=== PATIENT | female | born 1990 | race African-American/Black ===

== ENCOUNTER 2019-06-16 09:37 | Emergency (ER) | payer BC ==
--- NOTE | 2019-06-16 10:06 | EDM.PDOC ---
ED HPI GENERAL MEDICAL PROBLEM - General Chief Complaint: Upper Extremity Injury/Pain Stated Complaint: LEFT ARM INJURY Time Seen by Provider: 06/16/19 09:49 Source of Information: Reports: Patient History Limitations: Reports: No Limitations - History of Present Illness INITIAL COMMENTS - FREE TEXT/NARRATIVE: Patient is a 29-year-old female who presents with complaints of pain to her left upper arm after falling backward and catching herself with her bilateral arms while ice-skating approximate 45 minutes prior to arrival. She states she has to support her arm with her right hand or it is extremely painful. She denies a history of previous injuries to that extremity. 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: - Past Surgical History GI Surgical History: Reports: Cholecystectomy Social & Family History - Family History Family Medical History: Noncontributory - Tobacco Use Smoking Status *Q: Current Every Day Smoker Years of Tobacco use: 10 Packs/Tins Daily: 0.5 - Caffeine Use Caffeine Use: Reports: Coffee, Energy Drinks, Soda - Living Situation & Occupation Living situation: Reports: Occupation: Employed Review of Systems - Review of Systems Review Of Systems: See Below Constitutional: Reports: No Symptoms Eyes: Reports: No Symptoms Ears: Reports: No Symptoms Nose: Reports: No Symptoms Mouth/Throat: Reports: No Symptoms Respiratory: Reports: No Symptoms Cardiovascular: Reports: No Symptoms GI/Abdominal: Reports: No Symptoms Genitourinary: Reports: No Symptoms Musculoskeletal: Reports: Arm Pain Skin: Reports: No Symptoms Neurological: Reports: No Symptoms Psychiatric: Reports: No Symptoms ED EXAM, GENERAL - Physical Exam Exam: See Below Exam Limited By: No Limitations General Appearance: Alert, WD/WN, No Apparent Distress Respiratory/Chest: No Respiratory Distress, Lungs Clear, Normal Breath Sounds, No Accessory Muscle Use, Chest Non-Tender Cardiovascular: Normal Peripheral Pulses, Regular Rate, Rhythm, No Murmur Extremities: Normal Inspection, Other (pain on palpation to mid-humerous. Slight mid-humeral varus deformity noted. No ecchymosis noted.) Neurological: Alert, Oriented, Normal Cognition Psychiatric: Normal Affect, Normal Mood Skin Exam: Warm, Dry, Intact, Normal Color, No Rash Course - Vital Signs Last Recorded V/S: Last Vital Signs Temp 97.8 F 06/16/19 09:49 Pulse 80 06/16/19 09:49 Resp 16 06/16/19 09:49 BP 121/83 06/16/19 09:49 Pulse Ox 99 06/16/19 09:49 - Orders/Labs/Meds Orders: Active Orders 24 hr Category Date Time Status DME for Discharge [COMM] Stat Oth 06/16/19 11:26 Ordered Meds: Medications Discontinued Medications Generic Name Dose Route Start Last Admin Trade Name Freq PRN Reason Stop Dose Admin Hydromorphone HCl 1 mg 06/16/19 10:08 06/16/19 10:12 Dilaudid IM 06/16/19 10:09 1 mg ONETIME ONE Administration Hydromorphone HCl 1 mg 06/16/19 11:06 06/16/19 11:13 Dilaudid IM 06/16/19 11:07 1 mg ONETIME ONE Administration - Re-Assessments/Exams Free Text/Narrative Re-Assessment/Exam: 06/16/19 11:08 x-ray shows a slightly displaced fracture of the mid left humerus. I did call and talk to Dr. Arvizu orthopedist. He was able to view the xrays and he recommended that she be placed in a sugar tong splint at this time and then get in with [facility] in [place] as soon as possible to be fitted for a Null brace. discussed this with the patient. She states that she is still having pain and had minimal relief with the first dose of Dilaudid. I will order another dose of Dilaudid 1 mg IM and then wait about 15 minutes prior to splinting. We will call to seeand the soonest she can get in with [facility] in [place] is. 06/16/19 11:18 [facility] [place] was contacted regarding the Null brace. They directed us to [facility] in [place] as they will be able to do the fitting and provide her with the brace. 06/16/19 11:55 Pt has an appt with [facility] in [place] at 10am [facility] tomorrow. Dr. Arvizu stopped by the ER and stated that once the Null brace is on, she can f /u with him on Jun 30. Pt has an appt scheduled at 0900 [facility] on 06/30/[address] [place] [address] Arvizu. Departure - Departure Time of Disposition: 11:58 Disposition: Home, Self-Care 01 Condition: Fair Clinical Impression: Fracture of humerus, left, closed Qualifiers: Encounter type: initial encounter Humerus Location: shaft Fracture morphology: transverse Fracture alignment: displaced Qualified Code(s): S42.322A - Displaced transverse fracture of shaft of humerus, left arm, initial encounter for closed fracture - Discharge Information *PRESCRIPTION DRUG MONITORING PROGRAM REVIEWED*: No *COPY OF PRESCRIPTION DRUG MONITORING REPORT IN PATIENT MARGI: No Prescriptions: Acetaminophen/oxyCODONE [Percocet 325-5 MG] 1 - 2 each PO Q4H PRN #20 tab PRN Reason: Pain Instructions: Humerus Fracture Treated With Immobilization, [id number] Referrals: PCP,None [Primary Care Provider] - Forms: ED Department Discharge, ED Return to Work/School Form Additional Instructions: You were seen in the emergency department for pain to your left arm after falling while ice skating. Xray shows that you do have a fracture of the middle humerus. We consulted with Dr. Arvizu Orthopedic surgeon and he recommended that we apply a splint and sling today and that you be fit with a Null brace as soon as possible. An appointment has been made with [facility] in [place] at 10am [facility] tomorrow 06/17/19 to have the Null brace fitted and applied. An appointment has also been scheduled with Dr. Arvizu for a follow-up on June 30 at 0900 at [facility] in [place]. You have been provided a prescription for Percocet 1-2 tabs every 4 hours as needed for pain. We recommend that you ice the area intermittently through the splint. These medications are sedating, so you should not drive or operate any heavy machinery for 12 hours after taking them. You did also receive Dilaudid in the emergency department for pain. We recommend that she do not drive or 12 hours from these medications also. It is normal to have some numbness and tingling to the arm after this type of injury. If at any time you are unable to feel touch in the fingers of your left hand, the fingers and/or nailbeds become purple in color, you experience a significant increase in pain or you are unable to move your fingers, you should return to the emergency to be reevaluated. If you experience any new or worsening symptoms, please to not hesitate to return to the emergency department. Sepsis Event Note - Evaluation Sepsis Screening Result: No Definite Risk - Focused Exam Vital Signs: Vital Signs Temp Pulse Resp BP Pulse Ox 06/16/19 09:49 97.8 F 80 16 121/83 99 Date Exam was Performed: 06/16/19 Time Exam was Performed: 14:23 - My Orders Last 24 Hours: My Active Orders 06/16/19 11:26 DME for Discharge [COMM] Stat - Assessment/Plan Last 24 Hours: My Active Orders 06/16/19 11:26 DME for Discharge [COMM] Stat
[2019-06-16] MEDS ORDERED: HYDROmorphone 1 MG/ML Syringe IM ONE ×2 (10:08→11:06)
--- NOTE | 2019-06-16 10:48 | CR ---
Left humerus: Two views of the left humerus were obtained. Comparison: No previous study. Slightly displaced fracture is noted within the mid one third humerus. Displacement by about 1 shaft width. Minimal angulation is also noted. No additional abnormality is seen. Impression: 1. Mid left humerus fracture. Diagnostic code #3 This report was dictated in [place] Standard Time
== END 2019-06-16 12:30 | disposition home or self-care (01) ==
LOC: JD.ED 09:37
DX: S42.322A Displaced transverse fracture of shaft of humerus, left arm, initial encounter for closed fracture (principal); F17.210 Nicotine dependence, cigarettes, uncomplicated; Z90.49 Acquired absence of other specified parts of digestive tract; W19.XXXA Unspecified fall, initial encounter
CPT/HCPCS: 29105; 73060; 96374; 96376; 99283; J1170; 29125

== ENCOUNTER 2020-08-29 16:32 | Emergency (ER) | payer BC, MEDICAID ==
--- NOTE | 2020-08-29 16:55 | EDM.PDOC ---
ED HPI GENERAL MEDICAL PROBLEM - General Chief Complaint: Upper Extremity Injury/Pain Stated Complaint: LEFT MIDDLE FINGER PAIN Time Seen by Provider: 08/29/20 16:48 Source of Information: Reports: Patient, RN Notes Reviewed History Limitations: Reports: No Limitations - History of Present Illness INITIAL COMMENTS - FREE TEXT/NARRATIVE: Patient is a 30-year-old female who presents to the ED for evaluation of a left middle finger injury. Patient notes roughly 1 hour prior to arrival to the ER, she got her finger caught in a car door. She notes there is some pain to that area and it is somewhat difficult to bend at the distal joint of that finger. She notes a small bump or deformity. She denies any numbness or tingling to the area. She did not take any sort of Tylenol ibuprofen prior to coming to the ER. She has had no previous injury to this hand. Patient denies any other sick- like symptoms, fever/chills, cough/shortness of breath, nausea/vomiting/diarrhea. She denies any chance of . 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 ED EXAM, GENERAL - Physical Exam Exam: See Below Exam Limited By: No Limitations General Appearance: Alert, WD/WN, No Apparent Distress Respiratory/Chest: No Respiratory Distress, Lungs Clear, Normal Breath Sounds, No Accessory Muscle Use, Chest Non-Tender Cardiovascular: Normal Peripheral Pulses, Regular Rate, Rhythm, No Edema Peripheral Pulses: 2+: Radial (L), Radial (R) Extremities: Normal Inspection, Normal Capillary Refill Neurological: Alert, Oriented, Normal Cognition, No Motor/Sensory Deficits Psychiatric: Normal Affect, Normal Mood Skin Exam: Warm, Dry, Intact, Normal Color, No Rash ED TRAUMA EXTREMITY PROCEDURES - Splinting Left 3rd Digit Splint Site: left middle finger Pre-Procedure NV Status: Normal Post-Procedure NV Status: Normal Splint Material: Aluminum-Foam (cage type splint) Applied & Form Fitted By: Nurse Provider Post-Splint Application NV Check: NV Status Normal, Good Position Complications: No Course - Vital Signs Last Recorded V/S: Last Vital Signs Temp 97.5 F 08/29/20 16:47 Pulse 94 08/29/20 16:47 Resp 16 08/29/20 16:47 BP 153/103 H 08/29/20 16:47 Pulse Ox 96 08/29/20 16:47 - Orders/Labs/Meds Orders: Active Orders 24 hr Category Date Time Status Hand Comp Min 3V Lt [CR] Stat Exams 08/29/20 16:55 Taken Meds: Medications Discontinued Medications Generic Name Dose Route Start Last Admin Trade Name Sven PRN Reason Stop Dose Admin Ketorolac Tromethamine 60 mg 08/29/20 17:00 08/29/20 17:10 Toradol IM 08/29/20 17:01 60 mg ONETIME ONE Administration - Re-Assessments/Exams Free Text/Narrative Re-Assessment/Exam: 08/29/20 17:03 Patient presents to the ER for her left middle finger injury. We will x-ray the finger for acute bony injury, and will give her an injection of Toradol for pain management. 08/29/20 17:38 Patient's x-rays have been performed, there is one area that I can see on the lateral view that is suspicious for a small fracture. This was visualized by myself and Dr. Franklin official radiology read is still pending however. Nonetheless we will get the patient home with aluminum foam cage type splint for immobilization of the area and have her follow-up in a week to 10 days time if things are not much better. Patient is agreeable to this plan. Departure - Departure Time of Disposition: 17:39 Disposition: Home, Self-Care 01 Condition: Good Clinical Impression: Crushing injury of left middle finger, initial encounter - Discharge Information *PRESCRIPTION DRUG MONITORING PROGRAM REVIEWED*: No *COPY OF PRESCRIPTION DRUG MONITORING REPORT IN PATIENT MARGI: No Instructions: Crush Injury of the Hand, [id number] Referrals: PCP,None [Primary Care Provider] - Forms: ED Department Discharge, ED Return to Work/School Form Additional Instructions: You have been evaluated in the ED for your middle finger pain/injury. Your x-ray demonstrated a very tiny area that would be concerning for a possible small fracture however this was viewed on only one film, nonetheless your finger will be immobilized with an aluminum foam cage type splint to provide you some pain relief. Please keep this on as much as possible for the next 7 to 10 days, if pain is not improving much by that time, recommend you seek care for reevaluation. Please use ice as tolerated to the affected area. Please try to elevate the affected area to relieve swelling. You may take Tylenol 500 mg or ibuprofen 600mg q6 hrs for pain relief. Please do so until you have a tolerable level of pain with activity. Do not exceed 4000mg Tylenol or 3200mg ibuprofen in a 24 hour time period. Please return to ED if your symptoms should change or worsen. Sepsis Event Note (ED) - Evaluation Sepsis Screening Result: No Definite Risk - Focused Exam Vital Signs: Vital Signs Temp Pulse Resp BP Pulse Ox 08/29/20 16:47 97.5 F 94 16 153/103 H 96 - My Orders Last 24 Hours: My Active Orders 08/29/20 16:55 Hand Comp Min 3V Lt [CR] Stat - Assessment/Plan Last 24 Hours: My Active Orders 08/29/20 16:55 Hand Comp Min 3V Lt [CR] Stat
[2020-08-29] MEDS ORDERED: Ketorolac 60 MG/2 ML SDV IM ONE (17:00)
--- NOTE | 2020-08-30 08:28 | CR ---
Left third finger: 4 view centered to the left third finger were obtained. Comparison: No prior finger or hand exam is available. Joint spaces are maintained. No acute fracture, dislocation or other bony abnormality is appreciated. Impression: 1. Nothing acute is appreciated on left third finger study. Diagnostic code #1
== END 2020-08-29 17:56 | disposition home or self-care (01) ==
LOC: JD.ED 16:32
DX: S67.193A Crushing injury of left middle finger, initial encounter (principal); Z72.0 Tobacco use; W23.0XXA Caught, crushed, jammed, or pinched between moving objects, initial encounter
CPT/HCPCS: 73130-26-LT; 73130-LT; 96372; 99283; J1885

== ENCOUNTER 2022-09-09 15:04 | Emergency (ER) | payer MEDICAID | END 2022-09-09 16:58 | disposition home or self-care (01) | LOC: JD.ED 15:04 | DX: S83.92XA Sprain of unspecified site of left knee, initial encounter (principal); G62.89 Other specified polyneuropathies; M79.622 Pain in left upper arm; Z72.0 Tobacco use; Z86.16 Personal history of COVID-19; Z79.899 Other long term (current) drug therapy; W19.XXXA Unspecified fall, initial encounter | CPT/HCPCS: 73564-26-LT; 73564-LT; 99283 ==

== ENCOUNTER 2022-11-11 15:22 | Emergency (ER) | payer MEDICAID ==
[2022-11-11] MEDS ORDERED: Ondansetron 4 MG/2 ML SDV IVPUSH ONE (15:45)
[2022-11-11] MEDS ORDERED: Sodium Chloride 0.9% 1,000 ML IV ONE (15:45)
[2022-11-11] MEDS ORDERED: Sodium Chloride 0.9% 10 ML Syringe FLUSH PRN (15:45)
[2022-11-11] MEDS ORDERED: Iopamidol 612 MG/ML 100 ML Bottle IVPUSH ONE (15:58)
[2022-11-11] MEDS: Sodium Chloride 0.9% 10 ML Syringe FLUSH PRN ×2 (16:04→16:29)
[2022-11-11 16:12] LABS: BASOPHILS ABSOLUTE AUTO 0.05 K/mm3 (0.01-0.08); BASOPHILS PERCENT AUTO 0.9 % (0.1-1.2); EOSINOPHILS ABSOLUTE AUTO 0.01 K/mm3 (0.04-0.36); EOSINOPHILS PERCENT AUTO 0.2 (0.7-5.8); HEMATOCRIT 31.1 % (34.1-44.9); HEMOGLOBIN 9.6 gm/dl (11.2-15.7); IMMATURE GRAN ABSOLUTE AUTO 0.02 K/mm3 (0.00-0.10); IMMATURE GRAN PERCENT AUTO 0.3 % (<=1.0); LYMPHOCYTES ABSOLUTE AUTO 2.82 K/mm3 (1.18-3.74); LYMPHOCYTES PERCENT AUTO 48.2 % (19.3-51.7); MEAN CORPUSCULAR HGB CONC 30.9 g/dl (32.2-35.5); MEAN CORPUSCULAR VOLUME 74.4 fl (79.4-94.8); MEAN PLATELET VOLUME 9.1 fl (9.4-12.3); MONOCYTES ABSOLUTE AUTO 0.57 K/mm3 (0.24-0.36); MONOCYTES PERCENT AUTO 9.7 % (4.7-12.5); NEUTROPHILS ABSOLUTE AUTO 2.38 K/mm3 (1.56-6.13); NEUTROPHILS PERCENT AUTO 40.7 % (34.0-71.1); PLATELET COUNT,PLT 363 K/mm3 (182-369); RED BLOOD CELL COUNT 4.18 M/mm3 (3.98-5.22); WHITE BLOOD CELL COUNT,WBC 5.85 K/mm3 (3.98-10.04)
[2022-11-11 16:44] LABS: A/G RATIO 0.6 (1-2); ALANINE AMINOTRANSFERASE,ALT 40 U/L (14-59); ALBUMIN 2.8 g/dl (3.4-5.0); ALKALINE PHOSPHATASE 73 U/L (46-116); ANION GAP 10.6 (5-15); ASPARTATE AMNIOTRANSFERASE,AST 29 U/L (15-37); BILIRUBIN TOTAL 0.2 mg/dL (0.2-1.0); BLOOD UREA NITROGEN,BUN 9 mg/dL (7-18); C-REACTIVE PROTEIN <0.2 mg/dL (<1.0); CALCIUM 8.1 mg/dL (8.5-10.1); CARBON DIOXIDE,CO2 26 mEq/L (21-32); CHLORIDE,CL 104 mEq/L (98-107); CREATININE 0.6 mg/dL (0.55-1.02); EST CRCL DRUG DOSING (CG) 122.25 mL/min; ESTIMATED GFR 123 mL/min (>60); GLUCOSE RANDOM 84 mg/dL (70-99); LIPASE 21 U/L (73-393); MAGNESIUM 1.3 mg/dL (1.8-2.4); POTASSIUM,K 3.6 mEq/L (3.5-5.1); PROTEIN TOTAL,TP 7.7 g/dl (6.4-8.2); SODIUM,NA 137 mEq/L (136-145)
[2022-11-11] MEDS ORDERED: HYDROmorphone 0.5 MG/0.5 ML Syringe IVPUSH ONE (16:46)
[2022-11-11 16:48] LABS: APPEARANCE,URINE CLEAR (Clear); BILIRUBIN,URINE NEGATIVE (Negative); COLOR,URINE YELLOW (Yellow); GLUCOSE,URINE NEGATIVE (Negative); KETONES,URINE NEGATIVE (Negative); LEUKOCYTE ESTERASE,URINE NEGATIVE (Negative); NITRITE,URINE NEGATIVE (Negative); OCCULT BLOOD,URINE TRACE-INTACT (Negative); PH,URINE 6.5 (5.0-8.0); PROTEIN,URINE 2+ (Negative); UROBILINOGEN,URINE 0.2 (0.2-1.0)
[2022-11-11 16:55] LABS: BACTERIA,URINE MODERATE /hpf (FEW); MUCUS,URINE MANY /hpf (FEW); TRICHOMONAS,URINE FEW (NOT SEEN)
== END 2022-11-11 18:10 | disposition home or self-care (01) ==
LOC: JD.ED 15:22
DX: R11.2 Nausea with vomiting, unspecified (principal); R10.30 Lower abdominal pain, unspecified; F17.210 Nicotine dependence, cigarettes, uncomplicated; Z86.16 Personal history of COVID-19
CPT/HCPCS: 36415; 74177; 80053; 81001; 83690; 83735; 85025; 86140; 87086; 96374; 96375; 99284; J1170; J2405; J3490; J7030; Q9967

== ENCOUNTER 2023-01-28 16:16 | Emergency (ER) | payer OTHER ==
[2023-01-28] MEDS ORDERED: Ketorolac 60 MG/2 ML SDV IM ONE (16:38)
== END 2023-01-28 17:45 | disposition home or self-care (01) ==
LOC: JD.ED 16:16
DX: S39.012A Strain of muscle, fascia and tendon of lower back, initial encounter (principal); S29.012A Strain of muscle and tendon of back wall of thorax, initial encounter; F17.210 Nicotine dependence, cigarettes, uncomplicated; Z86.16 Personal history of COVID-19; V43.52XA Car driver injured in collision with other type car in traffic accident, initial encounter; Y92.410 Unspecified street and highway as the place of occurrence of the external cause
CPT/HCPCS: 72072; 72100; 96372; 99284; J1885; 99283